=== PATIENT | male | born 1935 | race Asian ===

== ENCOUNTER 2017-12-31 10:04 | Outpatient (CLI) | payer MEDICARE, BC ==
--- NOTE | 2017-12-31 17:58 | XRAY Report ---
Procedure Date: 12/31/2017 Accession Number: [id number] / [id number] Procedure: XRN - Knee 3 View RT CPT Code: FULL RESULT: EXAM: RIGHT KNEE RADIOGRAPHY EXAM DATE: 12/31/2017 12:23 PM. CLINICAL HISTORY: R knee pain. COMPARISON: None. TECHNIQUE: 3 views. FINDINGS: Bones: No fractures or bone lesions. Joints: No effusion. No subluxations. Minimal degenerative change Soft Tissues: Quadriceps tendon insertion enthesophyte. No soft tissue swelling. IMPRESSION: Minor degenerative change commensurate with the patient's age. RADIA
== END 2017-12-31 10:05 | disposition home or self-care (01) ==
LOC: DI.N 10:04
PROVIDERS: ATTEND Family Medicine
DX: M17.11 Unilateral primary osteoarthritis, right knee (principal); I10 Essential (primary) hypertension; M12.89 Other specific arthropathies, not elsewhere classified, multiple sites; Z79.899 Other long term (current) drug therapy; R41.81 Age-related cognitive decline
CPT/HCPCS: 36415; 80053; 80061; 83721; 85027

== ENCOUNTER 2017-12-31 11:51 | Outpatient (CLI) | payer MEDICARE, BC ==
[2017-12-31 18:53] LABS: HGB - HEMOGLOBIN 14.7 g/dL (14.0-18.0); MEAN CORPUSCULAR HGB CONC 33.7 g/dL (32.0-36.0); MEAN CORPUSCULAR VOLUME 95.2 fL (80.0-94.0); MEAN PLATELET VOLUME 8.2 fL (7.4-11.4); RED BLOOD COUNT 4.58 10^6/uL (4.70-6.10); RED CELL DISTRIBUTION WIDTH 13.9 % (12.0-15.0); WHITE BLOOD COUNT 5.1 x10^3/uL (4.8-10.8)
[2017-12-31 19:09] LABS: ALBUMIN 4.2 g/dL (3.2-5.5); ALBUMIN/GLOBULIN RATIO 1.1 (1.0-2.2); ALKALINE PHOSPHATASE 64 IU/L (42-121); ALT ALANINE AMINOTRANSFERASE 21 IU/L (10-60); AST ASPARTATE AMINOTRANSFERASE 25 IU/L (10-42); BILIRUBIN,TOTAL 1.2 mg/dL (0.2-1.0); BUN - BLOOD UREA NITROGEN 18 mg/dL (6-20); CALCIUM 9.1 mg/dL (8.5-10.3); CARBON DIOXIDE - CO2 24 mmol/L (21-32); CHLORIDE 103 mmol/L (101-111); CHOL/HDL RATIO 5.3 (<5.0); CHOLESTEROL 280 mg/dL; CREATININE 1.2 mg/dL (0.6-1.2); GFR - MDRD 58 (>89); GLUCOSE 108 mg/dL (70-100); HDL CHOLESTEROL 53 mg/dL; LDL CHOLESTEROL,CALCULATED 189 mg/dL; LDL/HDL RATIO 3.6 (<3.6); SODIUM 137 mmol/L (135-145); VLDL CHOLESTEROL 38 mg/dL
== END 2017-12-31 11:52 | disposition home or self-care (01) ==
LOC: LAB.N 11:51
PROVIDERS: ATTEND Family Medicine
DX: I10 Essential (primary) hypertension (principal); M12.89 Other specific arthropathies, not elsewhere classified, multiple sites; Z79.899 Other long term (current) drug therapy; R41.81 Age-related cognitive decline
CPT/HCPCS: 36415; 80053; 80061; 83721; 85027

== ENCOUNTER 2023-06-02 06:42 | Outpatient (CLI) | payer MEDICARE, BC | END 2023-06-02 23:59 | disposition EMS.NT | LOC: EMS 06:42 | DX: Z03.89 Encounter for observation for other suspected diseases and conditions ruled out (principal) ==

== ENCOUNTER 2023-10-22 15:51 | Outpatient (CLI) | payer MEDICARE, BC | END 2023-10-22 23:59 | disposition EMS.NT | LOC: EMS 15:51 | DX: Z03.89 Encounter for observation for other suspected diseases and conditions ruled out (principal) ==